=== PATIENT | male | born 1960 | race Two or more races ===

== ENCOUNTER 2018-12-19 10:41 | Outpatient (CLI) | payer OTHER | END 2018-12-19 10:48 | disposition home or self-care (01) | LOC: TOM 10:41 | DX: R22.2 Localized swelling, mass and lump, trunk (principal); R13.19 Other dysphagia; R07.0 Pain in throat; R52 Pain, unspecified ==

== ENCOUNTER 2020-09-14 12:14 | Outpatient (CLI) | payer OTHER | END 2020-09-14 12:27 | disposition home or self-care (01) | LOC: SONOGRAMA 12:14 → MAMO-SONO 13:00 | PROVIDERS: ATTEND General Practice | DX: M25.521 Pain in right elbow (principal); Z76.0 Encounter for issue of repeat prescription; E11.9 Type 2 diabetes mellitus without complications; I10 Essential (primary) hypertension; Z13.820 Encounter for screening for osteoporosis; Z11.3 Encounter for screening for infections with a predominantly sexual mode of transmission; Z12.11 Encounter for screening for malignant neoplasm of colon; Z12.5 Encounter for screening for malignant neoplasm of prostate ==

== ENCOUNTER 2021-09-19 07:28 | Emergency (ER) | payer OTHER ==
[~2021-09-19] VITALS: Ht 171.4 cm; Wt 79.4 kg
[2021-09-19] MEDS ORDERED: SYNJARDY 12.5-1 EAC1 PO (07:38)
[2021-09-19] MEDS ORDERED: GABAPENTIN300 M2 PO (07:38)
[2021-09-19] MEDS ORDERED: LISINOPRIL10 MG PO (07:38)
[2021-09-19] MEDS ORDERED: ATORVASTATIN CA40 MG PO (07:39)
[2021-09-19] MEDS ORDERED: VICTOZA 2-0.6 MG/0.1 SQ (07:39)
[2021-09-19] MEDS ORDERED: VERAPAMIL HCL80 MG PO (07:39)
== END 2021-09-19 09:57 | disposition home or self-care (01) ==
LOC: ER 07:28
DX: T15.92XA Foreign body on external eye, part unspecified, left eye, initial encounter (principal); Y93.9 Activity, unspecified; Y92.9 Unspecified place or not applicable; Y99.9 Unspecified external cause status; E11.9 Type 2 diabetes mellitus without complications; Z79.84 Long term (current) use of oral hypoglycemic drugs; I10 Essential (primary) hypertension

== ENCOUNTER 2022-09-28 06:40 | Emergency (ER) | payer OTHER ==
[~2022-09-28] VITALS: Ht 152.4 cm; Wt 77.6 kg
[~2022-09-28 06:40] MED LIST: ATORVASTATIN CA40 MG PO; GABAPENTIN300 M2 PO; LISINOPRIL10 MG PO; SYNJARDY 12.5-1 EAC1 PO; VERAPAMIL HCL80 MG PO; VICTOZA 2-0.6 MG/0.1 SQ
== END 2022-09-28 15:15 | disposition home or self-care (01) ==
LOC: ER 06:40
DX: R07.89 Other chest pain (principal); E11.9 Type 2 diabetes mellitus without complications; Z79.84 Long term (current) use of oral hypoglycemic drugs; Z79.4 Long term (current) use of insulin; I10 Essential (primary) hypertension

== ENCOUNTER 2024-03-20 07:03 | Outpatient (CLI) | payer OTHER ==
[~2024-03-20 07:03] MED LIST changes: +JARDIANCE10 MG PO; +VERELAN PM100 MG PO; +ZESTRIL5 MG PO
== END 2024-03-20 07:09 | disposition home or self-care (01) ==
LOC: SONOGRAMA 07:03
PROVIDERS: ATTEND Specialist/Technologist, Other Nephrology
DX: N18.2 Chronic kidney disease, stage 2 (mild) (principal); Z12.9 Encounter for screening for malignant neoplasm, site unspecified

== ENCOUNTER 2025-02-18 12:22 | Outpatient (CLI) | payer OTHER | END 2025-02-18 12:30 | disposition home or self-care (01) | LOC: SONOGRAMA 12:22 | PROVIDERS: ATTEND Specialist | DX: E04.1 Nontoxic single thyroid nodule (principal); L04.0 Acute lymphadenitis of face, head and neck ==

== ENCOUNTER 2025-05-04 08:07 | Outpatient (CLI) | payer OTHER | END 2025-05-04 08:16 | disposition home or self-care (01) | LOC: SONOGRAMA 08:07 | PROVIDERS: ATTEND Specialist | DX: E11.8 Type 2 diabetes mellitus with unspecified complications (principal); I10 Essential (primary) hypertension; Z12.5 Encounter for screening for malignant neoplasm of prostate; Z12.11 Encounter for screening for malignant neoplasm of colon ==